=== PATIENT | male | born 1950 | race Caucasian/White ===

== ENCOUNTER 2025-06-06 10:24 | Observation (INO) | payer MEDICARE, SELFPAY ==
[2025-06-06] VITALS (13 sets, daily range): BP systolic 112–138; BP diastolic 56–73; PULSE 50–60; RESP 14–23; TEMP 36.1–36.4; O2SAT 88–97; BMI 38.3; BMI 35.9
[2025-06-06 11:10] LABS: Add Manual Diff / Slide Review NO; Hematocrit 39.1 % (41-53); Hemoglobin 13.3 g/dL (13.5-17.5); Lymphocytes Absolute Auto 3600 /uL (1100-4500); Mean Corpuscular HGB Conc 34.1 % (30-36); Mean Corpuscular Hemoglobin 30.7 PG (26-34); Mean Corpuscular Volume 89.9 fL (80-100); Platelet Count 227 X10^3/uL (150-400)
[2025-06-06 11:18] LABS: INR 1.1 (0.9-1.3); Prothrombin Time 13.0 SECONDS (9.4-12.5)
[2025-06-06 11:21] LABS: Alanine Aminotransferase 41 IU/L (<50); Albumin 4.1 g/dL (3.5-5.0); Albumin Globulin Ratio 1.3 (1.0-2.8); Alkaline Phosphatase 64 U/L (38-126); Blood Urea Nitrogen 28 mg/dL (9-20); Calcium 9.0 mg/dL (8.4-10.2); Carbon Dioxide 27 mmol/L (22-32); Chloride 102 mmol/L (98-107); Estimated Glomerular Filt Rate > 60 mL/min (>60); Globulin 3.2 g/dL (1.7-4.1); Glucose 122 mg/dL (70-99); HEMOLYSIS 15 (0-50); PTT Partial Thromboplastin Tim 25 SECONDS (25.1-36.5); Potassium 3.9 mmol/L (3.4-5.1); Sodium 136 mmol/L (137-145); Total Protein 7.3 g/dL (6.3-8.2)
--- NOTE | 2025-06-06 14:01 | EKG_ITS ---
[address] [address] Test Date: 2025-06-06 Pat Name: Guille Bradford Department: [facility] Room: Gender: Male Pumper Helper: : 1950 Requested By: Order Number: [id number] Reading MD: Omega Tony MD Measurements Intervals [place] Rate: 56 P: -8 LA: 198 QRS: -19 QRSD: 80 T: -7 QT: 460 QTc: 443 Interpretive Statements Sinus bradycardia Inferior infarct , age undetermined Electronically Signed On 06-07-2025 7:52:38 PDT by Omega Tony MD
--- NOTE | 2025-06-06 15:01 | DI.CT.S_ITS ---
PROCEDURE: CT ANGIO ABDOMEN PELVIS INDICATIONS: bleed TECHNIQUE: After the administration of intravenous contrast, 2.5 mm thick sections acquired from the diaphragm to the symphysis. 10 mm maximum-intensity projection (MIP) reformats were then acquired. For radiation dose reduction, the following was used: automated exposure control. COMPARISON: None. FINDINGS: Image Quality: Diagnostic. Abdominal aorta: No aortic aneurysm or evidence of acute aortic syndrome. Mesenteric arteries: Patent without hemodynamically significant stenosis. Renal arteries: Patent without hemodynamically significant stenosis. OTHER: Lower Chest: No significant findings. Liver: No solid mass. Hepatic steatosis. Gallbladder: No radiopaque gallstones or wall thickening. Biliary ducts: No biliary dilation. Pancreas: No ductal dilation. Spleen: Size is within normal limits. Adrenal Glands: Right adrenal nodule containing macroscopic fat measuring 2.4 cm, (4/37). Consistent with a benign myelolipoma. Kidneys and Ureters: No hydronephrosis. Small nonobstructing bilateral kidney stones. No solid mass. No complex renal cystic lesion which requires follow up. Stomach and Bowel: Normal colonic caliber, without significant wall thickening. Diverticulosis. No diverticulitis. The appendix is not seen. No active extravasation. Peritoneum: No abnormal intraperitoneal fluid. No free air. Ventral Wall: Small fat containing umbilical hernia. Abdominal Nodes: No retroperitoneal or mesenteric adenopathy by size criteria. Vessels: Aorta and inferior vena cava are normal in size. PELVIS: Pelvic Organs: Unremarkable. Bladder: Unremarkable. Pelvic Nodes: No enlarged lymph nodes. Miscellaneous: No inguinal hernias are seen. Bones: No aggressive osseous abnormality. Multilevel DDD. IMPRESSION: 1. No acute extravasation. Diverticulosis. 2. No aortic dissection. No aneurysm. 3. Small benign right adrenal myelolipoma. 4. Small nonobstructing kidney stones 5. Hepatic steatosis. Dictated by: Dave De Guzman M.D. on 06/06/2025 at 15:04 Approved by: Dave De Guzman M.D. on 06/06/2025 at 15:11
--- NOTE | 2025-06-06 16:27 | ED.GIBLEED ---
HPI - GI Bleed General Chief complaint: GI Bleed Stated complaint: Rectal Bleeding, referred from [facility] Time Seen by Provider: 06/06/25 14:16 Source: patient Mode of arrival: Ambulatory History of Present Illness HPI Narrative: Pleasant 74-year-old man with a history of completed lower GI bleeds comes in again with bright red blood per rectum. He states that he had a episode of large volume rectal bleeding 2 years ago and at that time he had a colonoscopy which was inconclusive for any source of bleeding but he was told that he was likely having diverticular bleeds. Since that episode 2 years ago he has had innumerable episodes of bright red blood per rectum but he has not sought medical care for theser because they have been self-limited. Today the bleeding is going on longer than he usually does so he came in to be evaluated. Related Data Allergies Allergy/AdvReac Type Severity Reaction Status Date / Time No Known Drug Allergies Allergy Verified 06/06/25 10:37 Patient History Social History Smoking Status: Never smoker Smoking Status: Never smoker Exam Initial Vital Signs Initial Vital Signs: Vital Signs Temperature 97.5 F L 06/06/25 10:29 Pulse Rate 58 L 06/06/25 10:29 Respiratory Rate 16 06/06/25 10:29 Blood Pressure 138/73 06/06/25 10:29 Pulse Oximetry 95 06/06/25 10:29 Oxygen Delivery Method Room Air 06/06/25 10:29 Const General: comfortable, No in distress and No ill appearing [facility] Head: normocephalic and atraumatic Face and sinus: normal facial exam Neck Neck: normal visual inspection, supple and No tender Resp Effort & Inspection: normal respiratory effort Auscultation: clear to auscultation bilaterally Cardio Rate: regular rate Rhythm: regular rhythm Heart Sounds: S1 normal and S2 normal GI Palpation: soft and No tender Auscultation: normal bowel sounds Course Course Course Narrative: Patient seen and examined by myself once he was roomed. The patient states that his rectal bleeding is already slowing down. He denies any pain. He had CT angiogram of his abdomen and pelvis which did not show any ongoing extravasation. I discussed the case with the surgeon on-call who agreed to consult on the patient. I then spoke with the hospitalist on-call who accepted the patient for observation. Orders Ordered: ED Orders 06/06/25 10:50 Complete Blood Count AUTO DIFF Stat Comprehensive Metabolic Panel Stat PTT Partial Thromboplastin Bruce Stat Prothrombin Time INR Stat Type and Screen Stat 06/06/25 13:52 EKG-12 Lead Stat 06/06/25 15:01 CT angio abdomen pelvis Stat Ondansetron HCl (Ondansetron 4 Mg/2 Ml Inj) 4 mg IV NOW PRN PRN Reason: Nausea And Vomiting Ondansetron HCl (Ondansetron 4 Mg Odt) 4 mg PO NOW PRN PRN Reason: Nausea And Vomiting Vital Signs Vital signs: Vital Signs - 8 hr 06/06/25 10:29 06/06/25 13:17 06/06/25 13:22 Temperature 97.5 F L Pulse Rate 58 L 60 Respiratory Rate 16 Blood Pressure 138/73 135/62 Pulse Oximetry 95 88 L Oxygen Delivery Method Room Air 06/06/25 13:22 06/06/25 13:30 06/06/25 13:30 Temperature Pulse Rate 51 L 52 L Respiratory Rate 23 20 Blood Pressure 128/60 Pulse Oximetry 96 96 Oxygen Delivery Method Room Air MDM - GI Bleed Lab Data 06/06/25 10:50 06/06/25 10:50 Labs: Lab Results 06/06/25 Range/Units 10:50 WBC 12.0 H (4.5-11.0) X10^3/uL RBC 4.35 L (4.5-5.9) X10^6/uL Hgb 13.3 L (13.5-17.5) g/dL Hct 39.1 L (41-53) % MCV 89.9 (80-100) fL MCH 30.7 (26-34) PG MCHC 34.1 (30-36) % RDW 14.4 (11.6-14.8) % Plt Count 227 (150-400) X10^3/uL Neut % (Auto) 62.3 (50-75) % Lymph % (Auto) 29.8 (25-40) % [place] % (Auto) 6.2 (3-14) % Eos % (Auto) 0.8 L (2-4) % Baso % (Auto) 0.9 (0-2) % Neut # (Auto) 7400 H (2406-9985) /uL Lymph # (Auto) 3600 (9383-8638) /uL [place] # (Auto) 700 (0-900) /uL Eos # (Auto) 100 (0-450) /uL Baso # (Auto) 100 (0-100) /uL PT 13.0 H (9.4-12.5) SECONDS INR 1.1 (0.9-1.3) APTT 25 L (25.1-36.5) SECONDS Sodium 136 L (137-145) mmol/L Potassium 3.9 (3.4-5.1) mmol/L Chloride 102 (98-107) mmol/L Carbon Dioxide 27 (22-32) mmol/L BUN 28 H (9-20) mg/dL Creatinine 1.08 (0.66-1.25) mg/dL Estimated GFR > 60 (>60) mL/min BUN/Creatinine Ratio 25.9 H (6-22) Glucose 122 H (70-99) mg/dL Calcium 9.0 (8.4-10.2) mg/dL Total Bilirubin 0.6 (0.2-1.3) mg/dL AST 36 (17-59) IU/L ALT 41 (<50) IU/L Alkaline Phosphatase 64 (38-126) U/L Total Protein 7.3 (6.3-8.2) g/dL Albumin 4.1 (3.5-5.0) g/dL Globulin 3.2 (1.7-4.1) g/dL Albumin/Globulin Ratio 1.3 (1.0-2.8) Blood Type A Positive Antibody Screen Negative Discharge Plan Departure Patient Disposition: Admitted as Observation Clinical Impression: Lower gastrointestinal hemorrhage Admit Date/Time: 06/06/25 16:20 Admit Provider: Jorge A Barajas
--- NOTE | 2025-06-06 17:21 | P.HP_ITS ---
History of Present Illness History of Present Illness Date Patient Seen: 06/06/25 Chief complaint: Rectal Bleeding, referred from [facility] Narrative: Chief complaint: Rectal bleeding with a history of diverticular bleed History of present illness: 74-year-old man with a history of completed lower GI bleeds comes in again with bright red blood per rectum. He states that he had a episode of large volume rectal bleeding 2 years ago and at that time he had a colonoscopy which was inconclusive for any source of bleeding but he was told that he was likely having diverticular bleeds. Since that episode 2 years ago he has had innumerable episodes of bright red blood per rectum but he has not sought medical care for theser because they have been self-limited. Today the bleeding is going on longer than he usually does so he came in to be evaluated. Emergency room course: Patient seen and examined ED physicianThe patient states that his rectal bleeding is already slowing down. He denies any pain. He had CT angiogram of his abdomen and pelvis which did not show any ongoing extravasation. ED physician discussed the case with the surgeon on-call who agreed to consult on the patient. the hospitalist on-call who accepted the patient for observation. Review of systems: No weight loss or weight gain No difficulty swallowing No nausea vomiting diarrhea abdominal pain No urinary symptoms No paresthesia paresis Physical exam: Elderly male in no acute distress HEENT unremarkable No labored respirations Abdomen nontender nondistended bowel sounds present Extremities no edema Neurologic nonfocal For objective laboratory and imaging findings please see bottom of the note Assessment and plan: Lower gastrointestinal hemorrhage with history of diverticular bleed and suspicion of recurrent colon * Placed in observation * Serial hemoglobin * Avoid anticoagulant * Consultation with surgery for possible intervention if needed * Outpatient referral for Gastroenterology following discharge * Type and screen transfuse if needed DVT prophylaxis: * Mechanical only Code status: * Full code [facility] Social History household members: spouse Smoking Status: Never smoker alcohol intake: current Meds Home Medications and Allergies Home Medications ?Medication ?Instructions ?Recorded ?Confirmed ?Type allopurinol 100 mg tablet 100 mg PO DAILY 06/06/2511/19 History apixaban 2.5 mg tablet (Eliquis) 2.5 mg PO BID 5 06/06/25 History hydrochlorothiazide 25 mg tablet 12.5 mg PO ONCE PM 06/06/25 History metoprolol tartrate 25 mg tablet 25 mg PO BID 06/06/25 06/06/25 History simvastatin 5 mg tablet 5 mg PO DAILY 06/06/2506/06 History Allergies Allergy/AdvReac Type Severity Reaction Status Date / Time No Known Drug Allergies Allergy Verified 06/06/25 10:37 Exam Vital Signs (past 8 hours): - 06/06/25 10:29 06/06/25 13:17 06/06/25 13:22 Temperature 97.5 F L Pulse Rate 58 L 60 Respiratory Rate 16 Blood Pressure 138/73 135/62 Pulse Oximetry 95 88 L Oxygen Delivery Method Room Air 06/06/25 13:22 06/06/25 13:30 06/06/25 13:30 Temperature Pulse Rate 51 L 52 L Respiratory Rate 23 20 Blood Pressure 128/60 Pulse Oximetry 96 96 Oxygen Delivery Method Room Air 06/06/25 14:00 06/06/25 14:00 06/06/25 14:30 Temperature Pulse Rate 59 L 55 L Respiratory Rate 19 14 Blood Pressure 125/61 Pulse Oximetry 97 97 Oxygen Delivery Method 06/06/25 14:30 06/06/25 15:00 06/06/25 15:01 Temperature Pulse Rate 55 L Respiratory Rate 19 Blood Pressure 126/65 122/56 L Pulse Oximetry 97 Oxygen Delivery Method 06/06/25 15:01 06/06/25 15:33 06/06/25 16:00 Temperature Pulse Rate 55 L 56 L 55 L Respiratory Rate 18 20 Blood Pressure Pulse Oximetry 97 97 97 Oxygen Delivery Method 06/06/25 16:30 Temperature Pulse Rate 50 L Respiratory Rate 20 Blood Pressure Pulse Oximetry 97 Oxygen Delivery Method Oxygen Delivery Method Room Air Objective Labs 06/06/25 10:50 06/06/25 10:50 Labs: Laboratory Results - last 24 hr 06/06/25 10:50 WBC 12.0 H RBC 4.35 L Hgb 13.3 L Hct 39.1 L MCV 89.9 MCH 30.7 MCHC 34.1 RDW 14.4 Plt Count 227 Neut % (Auto) 62.3 Lymph % (Auto) 29.8 [place] % (Auto) 6.2 Eos % (Auto) 0.8 L Baso % (Auto) 0.9 Neut # (Auto) 7400 H Lymph # (Auto) 3600 [place] # (Auto) 700 Eos # (Auto) 100 Baso # (Auto) 100 PT 13.0 H INR 1.1 APTT 25 L Sodium 136 L Potassium 3.9 Chloride 102 Carbon Dioxide 27 BUN 28 H Creatinine 1.08 Estimated GFR > 60 BUN/Creatinine Ratio 25.9 H Glucose 122 H Calcium 9.0 Total Bilirubin 0.6 AST 36 ALT 41 Alkaline Phosphatase 64 Total Protein 7.3 Albumin 4.1 Globulin 3.2 Albumin/Globulin Ratio 1.3 Blood Type A Positive Antibody Screen Negative Assessment & Plan Assessment and plan (1) Lower gastrointestinal hemorrhage: Status: Acute Time-Based Coding :: 55 minutes spent with patient and on the chart (including review of chart, obtaining history, exam, reviewing outside data, placing orders, documenting exam and treatment plan, and counseling patient).
--- NOTE | 2025-06-06 18:24 | PC.NURSE ---
Pt reports that he has not been having blood in stool at this time.
[2025-06-06] MEDS: LACTATED RINGERS 1,000 ML 100 ML IV (18:58)
[2025-06-07 00:05] VITALS: BP 118/59; PULSE 62; RESP 18; TEMP 35.8; O2SAT 95
[2025-06-07 04:45] VITALS: BP 132/63; PULSE 72; RESP 18; TEMP 36; O2SAT 98
[2025-06-07] MEDS: LACTATED RINGERS 1,000 ML 100 ML IV (05:20)
[2025-06-07 06:10] LABS: Hematocrit 34.4 % (41-53); Hemoglobin 12.0 g/dL (13.5-17.5)
[2025-06-07 08:00] VITALS: BP 116/65; PULSE 69; RESP 16; TEMP 35.8; O2SAT 96
[2025-06-07 12:00] VITALS: BP 118/68; PULSE 63; RESP 16; TEMP 36.4; O2SAT 96
--- NOTE | 2025-06-07 12:17 | P.DS_ITS ---
History of Present Illness History of Present Illness Date Patient Seen: 06/07/25 Chief complaint: Rectal Bleeding, referred from [facility] Narrative: Chief complaint: Rectal bleeding with a history of diverticular bleed History of present illness: 74-year-old man with a history of completed lower GI bleeds comes in again with bright red blood per rectum. He states that he had a episode of large volume rectal bleeding 2 years ago and at that time he had a colonoscopy which was inconclusive for any source of bleeding but he was told that he was likely having diverticular bleeds. Since that episode 2 years ago he has had innumerable episodes of bright red blood per rectum but he has not sought medical care for these because they have been self-limited. Today the bleeding is going on longer than he usually does so he came in to be evaluated. Emergency room course: Patient seen and examined ED physicianThe patient states that his rectal bleeding is already slowing down. He denies any pain. He had CT angiogram of his abdomen and pelvis which did not show any ongoing extravasation. ED physician discussed the case with the surgeon on-call who agreed to consult on the patient. the hospitalist on-call who accepted the patient for observation. Hospital course: 06/07: No further bleeding since yesterday afternoon patient has no pain stable hemoglobin did drop from 13-12. Patient is going to follow up with his PCP and he is due for a follow-up for the polyp in his colon that he had 2 years ago for colonoscopy Review of systems: No weight loss or weight gain No difficulty swallowing No nausea vomiting diarrhea abdominal pain No urinary symptoms No paresthesia paresis Physical exam: Elderly male in no acute distress HEENT unremarkable No labored respirations Abdomen nontender nondistended bowel sounds present Extremities no edema Neurologic nonfocal For objective laboratory and imaging findings please see bottom of the note Assessment and plan: Lower gastrointestinal hemorrhage with history of diverticular bleed and suspicion of recurrent colon * Placed in observation * Serial hemoglobin * Avoid anticoagulant * Consultation with surgery for possible intervention if needed * Outpatient referral for Gastroenterology following discharge * Type and screen transfuse if needed DVT prophylaxis: * Mechanical only Code status: * Full code blue 35 minutes were involved in managing the discharge of this patient Discharge Providers Provider Date of admission: 06/06/25 16:20 Discharge Date: 06/07/25 Discharge provider: Jorge A Barajas MD Exam Vital Signs (past 8 hours): - 06/07/25 04:45 06/07/25 08:00 Temperature 96.8 F L 96.4 F L Pulse Rate 72 69 Respiratory Rate 18 16 Blood Pressure 132/63 116/65 Pulse Oximetry 98 96 Oxygen Flow Rate 0 0 Oxygen Delivery Method Room Air Oxygen Flow Rate 0 Objective Labs 06/07/25 06:01 06/06/25 10:50 Labs: Laboratory Results - last 24 hr 06/07/25 06:01 Hgb 12.0 L Hct 34.4 L PFSH Social History household members: spouse Smoking Status: Never smoker alcohol intake: current Discharge Plan Discharge Plan Patient Disposition: Home Discharge orders & Medications Prescriptions: Continued allopurinol 100 mg tablet 100 mg PO DAILY hydrochlorothiazide 25 mg tablet 12.5 mg PO ONCE PM Eliquis 2.5 mg tablet 2.5 mg PO BID simvastatin 5 mg tablet 5 mg PO DAILY metoprolol tartrate 25 mg tablet 25 mg PO BID Visit Report/Discharge Packet Stand Alone Forms: Patient Portal/API, Stroke Signs & Symptoms Discharge Data Attending Provider: Jorge A Barajas Admit Date/Time: 06/06/25 16:20 Quality VTE Deep Vein Thrombosis/Pulmonary Embolism Present on Admission: No
--- NOTE | 2025-06-07 14:26 | PC.NURSE ---
Patient is A&OX4, VSS, afebrile on RA. He is independent ambulating in his room. He tolerates the clear liquid diet well, denying n/v, or passing any more stools. He reports passing gas. MD evaluated patient at bedside and medically clears him for discharge home today with his . He verbalizes understanding of medications (holding eloquis until following up with PCP this week), activity, s/sx of bloody stools returning. He is escorted via w/ch to private vehicle for discharge home with today at approximately 1415 this afternoon.
== END 2025-06-07 14:20 | disposition home or self-care (01) ==
LOC: ED 14:16 → AC 16:20
PROVIDERS: Internal Medicine; Admitting Provider Internal Medicine; Emergency Provider Emergency Medicine; Referring Provider Emergency Medicine; Visit Provider Internal Medicine
DX: K62.5 Hemorrhage of anus and rectum (principal); R07.9 Chest pain, unspecified
CPT/HCPCS: 36415; 74174; 80053; 85014; 85018; 85025; 85610; 85730; 86850; 86900; 86901; 93005; 93010; 96360; 96361; 99284; G0378; Q9967